=== PATIENT | male | born 2000 | race Caucasian/White ===

== ENCOUNTER → 2022-04-26 11:09 | Outpatient (CLI) | payer OTHER, SELFPAY ==
--- NOTE | 2022-04-26 | DI.RAD.S_ITS ---
PROCEDURE: FL SHOULDER INJECTION MR/CT LT INDICATIONS: Pain in left shoulder COMPARISON: [facility], MR, MR SHOULDER LT W CON, 04/26/2022, 11:55. TECHNIQUE: The indications, alternatives, benefits, risks, and complications of the procedure were explained to the patient. Written informed consent was obtained and placed in the chart. The shoulder was examined fluoroscopically and a site for needle placement chosen for entry into the glenohumeral joint from an anterior approach. The skin was prepped and draped in a sterile fashion, and 1% lidocaine infiltrated from skin down to joint capsule. A spinal needle was inserted into the glenohumeral joint, and a small amount of iodinated contrast media injected to confirm intra-articular placement of the needle tip. This was followed by approximately 12 mL dilute solution of a gadolinium containing MR contrast agent. The needle was removed and a dressing was applied. The patient was given postprocedural instructions and sent to the MR suite for MR imaging. FINDINGS: A single fluoroscopic spot image demonstrates intra-articular location of injected iodinated contrast. IMPRESSION: Successful fluoroscopically guided administration of dilute Gadolinium solution into the shoulder joint for MR arthrogram. Dictated by: Rosendo Calhoun M.D. on 04/26/2022 at 13:04 Approved by: Rosendo Calhoun M.D. on 04/26/2022 at 13:05
--- NOTE | 2022-04-26 | DI.MRI.S_ITS ---
PROCEDURE: MR SHOULDER LT W CON INDICATIONS: Pain in left shoulder TECHNIQUE: After the administration of 12 mL of dilute intra-articular Gadolinium contrast, oblique coronal T1 and T2 spin echo with fat saturation, oblique sagittal T1 spin echo with and without fat saturation, oblique sagittal T2 fast spin echo with fat saturation, axial T1 spin echo with fat saturation through the shoulder. COMPARISON: None. FINDINGS: Image quality: Excellent. Rotator cuff: Distal supraspinatus tendinosis at its insertion on the humeral head is seen. Distal infraspinatus and subscapularis tendon are intact. No full-thickness rotator cuff tendon rupture. No rotator cuff muscle atrophy on sagittal images. Bones and bursae: No bone marrow contusions or fractures. No acromioclavicular joint degeneration. The acromion demonstrates conventional anatomy, without an os acromiale. Capsule and soft tissues: There is signal abnormality, contour irregularity and contrast extension in superior anterior labrum at 12 to 2 o'clock position suggestive of superior anterior labral tear. The glenohumeral ligaments appear intact. The long head of the biceps tendon demonstrates normal location and morphology. The rotator interval appears normal, without fibrosis. The coracohumeral ligament is of normal thickness. No intra-articular bodies. IMPRESSION: 1. Distal supraspinatus tendinosis at its insertion on the humeral head. No rotator cuff tendon rupture. No muscle atrophy. 2. No marrow edema. No fracture or dislocation. No suspicious bony lesions. No intra-articular loose bodies. 3. Suggestion of superior anterior labral tear at 12 to 2 o'clock position. Dictated by: Flo Aldrich M.D. on 04/26/2022 at 13:06 Approved by: Flo Aldrich M.D. on 04/26/2022 at 13:11
== END ==
PROVIDERS: Referring Provider Orthopaedic Surgery; Visit Provider Orthopaedic Surgery
DX: M25.512 Pain in left shoulder (principal)
CPT/HCPCS: 23350; 73222

== ENCOUNTER → 2024-06-26 15:37 | Outpatient (CLI) | payer OTHER, SELFPAY ==
--- NOTE | 2024-06-26 15:38 | DI.MRI.S_ITS ---
PROCEDURE: MR SHOULDER LT W CON INDICATIONS: LEFT SHOULDER INSTABILITY TECHNIQUE: After the administration of 12 mL of dilute intra-articular Gadolinium contrast, oblique coronal T1 and T2 spin echo with fat saturation, oblique sagittal T1 spin echo with and without fat saturation, oblique sagittal T2 fast spin echo with fat saturation, axial T1 spin echo with fat saturation through the shoulder. COMPARISON: [facility], , MR SHOULDER LT W CON, 04/26/2022, 11:55. FINDINGS: Image quality: Excellent. Rotator cuff: The supraspinatus, infraspinatus, and subscapularis tendons appear intact throughout. No rotator cuff muscle atrophy on sagittal images. Bones and bursae: No bone marrow contusions or fractures. Mild glenohumeral and acromioclavicular joint degeneration. The acromion demonstrates conventional anatomy, without an os acromiale. Capsule and soft tissues: There is undercutting of the anterosuperior, anterior, and anteroinferior labrum, as before, indicating labral tearing. Full-thickness biceps tendon tear. The rotator interval appears normal, without fibrosis. The coracohumeral ligament is of normal thickness. No intra-articular bodies. IMPRESSION: 1. No significant change in anterior labral tearing. 2. Biceps tendon tear. 3. Acromioclavicular and glenohumeral joint osteoarthritis. 4. No rotator cuff tear. Dictated by: Anna Davis M.D. on 06/27/2024 at 9:30 Approved by: Anna Davis M.D. on 06/27/2024 at 9:32
--- NOTE | 2024-06-26 15:39 | DI.RAD.S_ITS ---
PROCEDURE: FL ARTHROGRAM SHOULDER LT INDICATIONS: LEFT SHOULDER INSTABILITY COMPARISON: [facility], MR, MR SHOULDER LT W CON, 06/26/2024, 16:06. TECHNIQUE: The indications, alternatives, benefits, risks, and complications of the procedure were explained to the patient. Written informed consent was obtained and placed in the chart. The shoulder was examined fluoroscopically and a site for needle placement chosen for entry into the glenohumeral joint from an anterior approach. The skin was prepped and draped in a sterile fashion, and 1% lidocaine infiltrated from skin down to joint capsule. A spinal needle was inserted into the glenohumeral joint, and a small amount of iodinated contrast media injected to confirm intra-articular placement of the needle tip. This was followed by approximately 12 mL dilute solution of a gadolinium containing MR contrast agent. The needle was removed and a dressing was applied. The patient was given postprocedural instructions and sent to the MR suite for MR imaging. FINDINGS: A single fluoroscopic spot image demonstrates intra-articular location of injected iodinated contrast. IMPRESSION: Successful fluoroscopically guided administration of dilute Gadolinium solution into the shoulder joint for MR arthrogram. Dictated by: Lyndsey Ernandez M.D. on 06/26/2024 at 22:03 Approved by: Lyndsey Ernandez M.D. on 06/26/2024 at 22:03
[2024-06-26] MEDS: LIDOCAINE 1% 20 ML INJ (16:17)
[2024-06-26] MEDS: SODIUM CHLORIDE 0.9 % 20 ML VIAL IV (16:17)
== END ==
DX: S46.212A Strain of muscle, fascia and tendon of other parts of biceps, left arm, initial encounter (principal); S43.492A Other sprain of left shoulder joint, initial encounter; M25.312 Other instability, left shoulder; M19.012 Primary osteoarthritis, left shoulder
CPT/HCPCS: 23350; 73040; 73222; A9579; Q9967